=== PATIENT | female | born 1970 | race American Indian/Alaskan Native ===

== ENCOUNTER 2017-07-03 06:27 | Emergency (ER) | payer BC ==
[2017-07-03] MEDS ORDERED: CORDARONE 900 MG in D5W 482 ML IV SCH (07:00)
[2017-07-03] MEDS ORDERED: CORDARONE 150 MG in D5W 100 ML IV ONE (07:00)
--- NOTE | 2017-07-03 07:25 | Emergency Department Report ---
ED CPR HPI - General Stated Complaint: UNRESPONSIVE Time Seen by Provider: 07/03/17 07:03 - History of Present Illness Initial Comments: 47-year-old -[place] female presents to the emergency department by EMS from home with the original report of a unresponsive bradycardic patient coming in. Shortly afterwards they called back saying that the patient had become pulseless. They were just able to get an IV as they were pulling up and no medications were given. Chest compressions were started when the patient became pulseless but they were unable to intubate her and she received bag valve ventilation. She presented to the emergency department pulseless, apneic and in asystole. There was a reported history of CHF and diabetes. I was able to speak with the family after CPR had been completed and they say that she was complaining of not feeling well, feeling short of breath, and requesting to go to the hospital. Shortly after this she became unresponsive, fell to the floor and "was foaming at the mouth." - Related Data Allergies Allergy/AdvReac Type Severity Reaction Status Date / Time No Known Drug Allergies Allergy Unknown Verified 07/03/17 06:53 ED Review of Systems ROS: Stated complaint: UNRESPONSIVE Other details as noted in HPI Comment: Unobtainable due to pts medical conditions ED Physical Exam - Other Other exam information: GENERAL: Patient is ill-appearing and unresponsive. HENT: Normocephalic. Atraumatic. Patient has moist mucous membranes. EYES: Pupils are fixed and dilated. NECK: Supple. Trachea appears midline. CHEST/LUNGS: There are no spontaneous respirations. HEART/CARDIOVASCULAR: There are no spontaneous heart sounds. ABDOMEN: Abdomen is soft. There is no abdominal distention. Morbidly obese habitus. SKIN: Skin is cool but dry. NEURO: Unresponsive. Does not withdraw to painful stimuli. Does not follow any commands. MUSCULOSKELETAL: There is no obvious deformity. There is no evidence of acute injury. No palpable femoral or radial pulses. ED Course Vital Signs 07/03/17 07/03/17 07/03/17 06:27 06:46 06:50 Pulse Rate 0 L 94 H 32 L Respiratory 0 L 16 Rate Blood Pressure 0/0 Blood Pressure 108/72 [Left] 07/03/17 06:54 Pulse Rate 0 L Respiratory Rate Blood Pressure Blood Pressure [Left] - Intubation Time Out Performed: No Sedative: none Laryngoscope: Celsa Size: 4 ET Tube Size: 7.5 Tube Secured Depth (cm): 24 Tube Secured Location: lips Tube Placement Confirmation: visualized tube passing t, equal breath sounds bilat, confirmation by capnometr Intubation Complications: none ED Medical Decision Making - Medical Decision Making The patient originally was coming in for an unresponsive episode with some bradycardia but she lost her pulse in route. She presented with an IV in place but no medications given and no intubation performed prior to arrival. She was receiving chest compressions as soon as she was found to be pulseless. Upon arrival to the emergency department it was confirmed that she was pulseless, she was placed on the monitor, and she was found to be asystolic. ACLS was continued as soon as she arrived including chest compressions. I intubated the patient and she was found to have some emesis coming up the tube so that could have been possible aspiration prior to EMS arrival. The patient received ACLS protocol for about 35 minutes that included 7 rounds of epinephrine, one dose of sodium bicarbonate, 1 dose of calcium and an amiodarone bolus and only a brief return of spontaneous circulation. For the first 4-5 rhythm checks, the patient was in asystole. However during round 5, the rhythm appeared more consistent with V. tach and the patient was given 200 J defibrillation. Chest compressions were immediately restarted, the patient was given another round of epinephrine and on the next pulse and rhythm check, the patient was still pulseless with what appeared to be V. tach. She received another 200 J defibrillation followed by epinephrine and and on the next rhythm or pulse check , the patient appeared to have a slightly more organized rhythm and a faint palpable and auscultated pulse and/or heartbeat. At this point orders were given to give start amiodarone drip, start Levophed and a IV fluid bolus. However shortly after she was found to have a pulse, she had severe bradycardia. She was given some atropine but it did not appear to take effect and the heart rate got down to about 30 and we were no longer able to palpate or auscultate a pulse or heart beat. At this point ACLS protocol was once again restarted. She received another dose of epinephrine, chest compressions. 3 minutes later, the patient was found to be pulseless in PEA. I took the bedside ultrasound and looked at the patient's heart and there was no visible squeeze or movement. There still were no spontaneous heart or breath sounds, she had fixed and dilated pupils. At this point, secondary to medical futility, time of was called at 6:58 AM. Family was notified and given an opportunity to see the patient. - Differential Diagnosis dysrhythmia, PE, NE, CHF Critical Care Time: Yes Critical care time in (mins) excluding proc time.: 35 Critical care attestation.: If time is entered above; I have spent that time in minutes in the direct care of this critically ill patient, excluding procedure time. Critical care time was spent on this patient during her initial evaluation, supervision of ACLS protocol, discussion with the patient's family. This is not included at the time spent doing the intubation procedure. Critical Care Time: 35 minutes ED Disposition Clinical Impression: Cardiac arrest, Respiratory arrest Disposition: [id number] Is pt being admited?: No Time of Disposition: 07:30
[2017-07-03 07:30] VITALS: BP 108/72
[2017-07-03] MEDS ORDERED: SODIUM BICARBONATE IV ONE (14:59)
[2017-07-03] MEDS ORDERED: ADRENALIN ONE (14:59)
[2017-07-03] MEDS ORDERED: ATROPINE 0.1% (CARDIAC) ONE (14:59)
[2017-07-03] MEDS ORDERED: CALCIUM CHLORIDE IV ONE (14:59)
== END 2017-07-03 10:18 ==
LOC: ED 06:27
DX: I46.9 Cardiac arrest, cause unspecified (principal); R09.2 Respiratory arrest
CPT/HCPCS: 31500; 92950; 99291; J0171; J0282; J0461; J7060